=== PATIENT | female | born 1955 | race Caucasian/White ===

== ENCOUNTER 2017-02-17 22:02 | Emergency (ER) | payer MEDICARE ==
[~2017-02-17] VITALS: Ht 165.1 cm; Wt 122.7 kg
[~2017-02-17 22:02] MED LIST: 00186-0372-20 IH; ALBUTEROL SULFAT3 M3 IH; ALBUTEROL0.83 MG/ML IH; ALLEGRA180 MG PO; ALLERGY RELIEF25 M2 PO; ALLERGY RELIEF25 M3 PO; AMBIEN 10MG10 MG PO; ASPIR-LOW81 MG PO; ASPIRIN 81M81 MG/TA2 PO; ASPIRIN E.C. 8181 MG PO; ATROVENT I0.2 MG/1 M IH; CLOPIDOGREL; CRESTOR 10MG10 MG PO; DIPHENHYDRAMINE25 MG PO; ED A HIST; EPA FISH OIL1000 MG PO; EPA1000 MG PO; FLEXERIL10 MG PO; GAS RELIEF80 MG PO; GELATIN650 MG PO; GLUCOPHAGE850 MG/TAB; IPRATROPIUM BROM3 M1 IH; LASIX 20MG TABL20 MG PO; LEVAQUIN 5500 MG/TA1 PO; LEVOTHYROXINE0.1 MG PO; LEVOXYL0.112 MG; LEVOXYL0.112 MG PO; LOPRESSOR 225 MG/TAB PO; LYRICA 50MG CAP50 MG; MAGNESIUM250 MG PO; MELATONIN3 M1 PO; METOPROLOL SUCC25 MG PO; NITROQUICK0.4 MG SL; NITROSTAT0.4 MG/TAB SL; OMEGA 31000 MG PO; PERCOCET 325 MG1 TA2 PO; PERFOROMIS20 MCG/2 M IH; PHENERGAN W/CO120 ML PO; PLAVIX 75MG TAB75 MG PO; POTASSIUM99 MG PO; PREDNISONE20 MG PO; PROVENTIL0.09 MG/A1 IH; RANITIDINE150 MG PO; RESTORIL30 MG PO; RT SPIRIVA18 MCG IH; SPIRIVA18 MCG IH; SYNTHROID0.112 MG/T PO; THEO-DUR 2200 MG/TAB PO; TRAMADOL50 MG PO; VERAMYST27.5 MCG/A NS; VITAMIN D31000 IU PO; XANAX 0.5MG0.5 MG; ZANTAC 150MG T150 MG; ZANTAC 150MG T150 MG PO; ZANTAC 7575 MG PO; ZETIA 10MG TAB10 MG PO; ZOCOR 80MG80 MG PO; ZOCOR80 MG PO
[2017-02-17 22:08] VITALS: TEMP 97.9
[2017-02-17 22:40] LABS: BASO # 0.1 (0.0-0.2); BASO % 0.5 % (0.0-2.0); EOS % 0.4 % (0-4.0); GRAN # 5.4 (1.4-6.5); GRAN % 54.6 % (42.2-75.2); HEMATOCRIT 46.6 % (37.0-47.0); HEMOGLOBIN 15.6 g/dl (12.5-16.0); LYMPH # 3.6 (1.2-3.4); LYMPH % 36.5 % (20.0-51.0); MEAN CELL VOLUME 89 fl (80.0-100.0); MEAN CORPUSCULAR HEMOGLOBIN 30 pg (27.0-31.0); MEAN CORPUSCULAR HGB CONC 34 g/dl (33.0-37.0); MEAN PLATELET VOLUME 11.3 fl (7.4-10.4); MONO # 0.8 (0.1-0.6); MONO % 7.5 % (1.7-9.3); PLATELET COUNT 234 K/mm3 (130-400); RED BLOOD COUNT 5.22 M/mm3 (4.10-5.30); REDCELL DISTRIBUTION WIDTH-CV 13.6 % (11.5-14.5); WHITE BLOOD COUNT 9.9 K/mm3 (4.8-10.8)
[2017-02-17 22:43] LABS: ADJUSTED CALCIUM 8.9 mg/dL (8.4-10.2); ALANINE AMINOTRANSFERASE 34 U/L (9-52); ALBUMIN 4.3 gm/dL (3.5-5.0); ALKALINE PHOSPHATASE 151 U/L (50-136); ANION GAP 14 mmol/L (7-16); BILIRUBIN,TOTAL 0.6 mg/dL (0.0-1.0); BLOOD UREA NITROGEN 14 mg/dL (7-17); CALCIUM 9.1 mg/dL (8.4-10.2); CARBON DIOXIDE 22 mmol/L (22-30); CHLORIDE 101 mmol/L (98-107); CREATININE, serum 0.66 mg/dL (0.52-1.25); GLUCOSE 127 mg/dL (74-106); POTASSIUM 4.2 mmol/L (3.4-5.0); SODIUM 137 mmol/L (137-145)
[2017-02-17 22:54] LABS: B-TYPE NATRIURETIC PEPTIDE 62 pg/mL (0-125)
[2017-02-17 22:55] LABS: TROPONIN-I < 0.012 ng/mL (0.000-0.034)
[2017-02-18 01:48] VITALS: BP 124/65; PULSE 76
== END 2017-02-18 01:49 | disposition left against medical advice (07) ==
LOC: COL.ER 22:02
PROVIDERS: Emergency Medicine
DX: I10 Essential (primary) hypertension (principal); Z53.21 Procedure and treatment not carried out due to patient leaving prior to being seen by health care provider; I25.10 Atherosclerotic heart disease of native coronary artery without angina pectoris; Z95.5 Presence of coronary angioplasty implant and graft; E11.9 Type 2 diabetes mellitus without complications; E78.5 Hyperlipidemia, unspecified; F17.210 Nicotine dependence, cigarettes, uncomplicated; R79.89 Other specified abnormal findings of blood chemistry; Z79.84 Long term (current) use of oral hypoglycemic drugs
CPT/HCPCS: J3010; J7030

== ENCOUNTER → 2017-07-01 | Outpatient (CLI) | payer MEDICARE | LOC: COL.RAD 10:30 | DX: K76.0 Fatty (change of) liver, not elsewhere classified (principal) ==

== ENCOUNTER 2017-11-05 06:13 | Emergency (ER) | payer MEDICARE ==
[~2017-11-05] VITALS: Ht 165.1 cm; Wt 118.2 kg
[~2017-11-05 06:13] MED LIST changes: +00186-0370-20 IH; +B-121000 MCG PO; -GLUCOPHAGE850 MG/TAB; +GLUCOPHAGE850 MG/TAB PO; +MELATONIN5 M1 SL; +NEXIUM24HROTC PO; +POTASSIUM GLUC595 M1 PO; +TIROSINT150 MC1 PO; +TUDORZA IH; +VITAMIN D31000 I1 PO; +ZANTAC 150150 MG PO; +ZYRTEC 10MG10 MG PO
[2017-11-05 06:16] VITALS: TEMP 100.4
[2017-11-05 07:13] LABS: BASO % 0.3 % (0.0-2.0); GRAN # 5.3 (1.4-6.5); GRAN % 78.5 % (42.2-75.2); HEMATOCRIT 45.3 % (37.0-47.0); HEMOGLOBIN 15.1 g/dl (12.5-16.0); LYMPH # 0.8 (1.2-3.4); LYMPH % 11.3 % (20.0-51.0); MEAN CELL VOLUME 88 fl (80.0-100.0); MEAN CORPUSCULAR HEMOGLOBIN 29 pg (27.0-31.0); MEAN CORPUSCULAR HGB CONC 33 g/dl (33.0-37.0); MEAN PLATELET VOLUME 10.8 fl (7.4-10.4); MONO # 0.6 (0.1-0.6); MONO % 9.3 % (1.7-9.3); PLATELET COUNT 200 K/mm3 (130-400); RED BLOOD COUNT 5.13 M/mm3 (4.10-5.30); REDCELL DISTRIBUTION WIDTH-CV 14.4 % (11.5-14.5)
[2017-11-05 07:24] LABS: ALANINE AMINOTRANSFERASE 40 U/L (9-52); ALBUMIN 4.6 gm/dL (3.5-5.0); ALKALINE PHOSPHATASE 155 U/L (50-136); ANION GAP 12 mmol/L (7-16); AST,SGOT 33 U/L (15-37); BILIRUBIN,TOTAL 0.5 mg/dL (0.0-1.0); BLOOD UREA NITROGEN 10 mg/dL (7-17); CALCIUM 9.3 mg/dL (8.4-10.2); CARBON DIOXIDE 23 mmol/L (22-30); CHLORIDE 99 mmol/L (98-107); CREATININE, serum 0.75 mg/dL (0.52-1.25); GLUCOSE 140 mg/dL (74-106); POTASSIUM 4.2 mmol/L (3.4-5.0); SODIUM 134 mmol/L (137-145)
[2017-11-05 07:36] LABS: TROPONIN-I < 0.012 ng/mL (0.000-0.034)
[2017-11-05 07:37] LABS: ARTERIAL BLD GAS O2 SATURATION 94.2 % (92-100); ARTERIAL BLD GAS TCO2 CT 22.5; ARTERIAL BLOOD GAS BASE EXCESS -2.4 (-2-2); ARTERIAL BLOOD GAS HCO3 21.5 meq/L (22-26); ARTERIAL BLOOD GAS PCO2 34.7 mmHg (35-45); ARTERIAL BLOOD GAS PO2 69.2 mmHg (80-100); ARTERIAL BLOOD GAS pH 7.41 (7.35-7.45)
[2017-11-05] MEDS ORDERED: ZITHROMAX 250M250 MG PO (08:41)
[2017-11-05] MEDS ORDERED: TAMIFLU 75MG75 MG PO (10:12)
[2017-11-05] MEDS ORDERED: PREDNISONE20 MG PO (10:12)
[2017-11-05 11:15] VITALS: BP 131/67; PULSE 84
[2017-11-06] MEDS ORDERED: ZITHROMAX 250M250 MG PO (17:24)
== END 2017-11-05 10:00 | disposition home or self-care (01) ==
LOC: COL.ER 06:13 → MEDICAL 08:43 → COL.ER 08:43 → MEDICAL 10:00
PROVIDERS: Emergency Medicine; Family Medicine
DX: J44.1 Chronic obstructive pulmonary disease with (acute) exacerbation (principal); J10.1 Influenza due to other identified influenza virus with other respiratory manifestations; F17.210 Nicotine dependence, cigarettes, uncomplicated; Z99.81 Dependence on supplemental oxygen
CPT/HCPCS: J2930; J7030

== ENCOUNTER 2017-11-05 12:26 | Inpatient (IN) | payer MEDICARE ==
[~2017-11-05] VITALS: Ht 167.6 cm; Wt 94.6 kg
[~2017-11-05 12:26] MED LIST changes: +TAMIFLU 75MG75 MG PO; +ZITHROMAX 250M250 MG PO
[2017-11-05 13:34] LABS: ARTERIAL BLD GAS O2 SATURATION 93.1 % (92-100); ARTERIAL BLD GAS TCO2 CT 22.1; ARTERIAL BLOOD GAS BASE EXCESS -3.8 (-2-2); ARTERIAL BLOOD GAS PCO2 37.6 mmHg (35-45); ARTERIAL BLOOD GAS PO2 67.5 mmHg (80-100); ARTERIAL BLOOD GAS pH 7.36 (7.35-7.45)
[2017-11-05 14:16] VITALS: BP 121/39; PULSE 80; TEMP 98.2
[2017-11-05 14:17] VITALS: BP 121/39; PULSE 80; TEMP 98.2
[2017-11-05 15:12] VITALS: BP 121/39; PULSE 80; TEMP 98.2
[2017-11-05 20:14] VITALS: BP 106/66; PULSE 88; TEMP 98.1
[2017-11-05 21:33] LABS: MUCOUS Present /lpf; PH 5 (5-8); SQUAMOUS EPITHELIAL 0-2 /hpf; URINE APPEARANCE Clear; URINE BACTERIA None Seen /hpf; URINE BILIRUBIN Negative (NEGATIVE); URINE BLOOD Negative (NEGATIVE); URINE COLOR Straw; URINE GLUCOSE 3+ (NEGATIVE); URINE KETONE Negative (NEGATIVE); URINE LEUKOCYTE ESTERASE Negative (NEGATIVE); URINE NITRATE Negative (NEGATIVE); URINE PROTEIN(semi-quant) Negative (NEGATIVE); URINE RBC 0-2 /hpf; URINE UROBILINOGEN Negative (NEGATIVE)
[2017-11-05 21:36] LABS: COLLECTION METHOD CLEAN CATCH
[2017-11-05 23:58] VITALS: BP 115/53; PULSE 74; TEMP 97.6
[2017-11-06 04:12] VITALS: BP 119/50; PULSE 72; TEMP 97.6
[2017-11-06 07:11] LABS: BASO % 0.1 % (0.0-2.0); EOS % 0.1 % (0-4.0); GRAN # 6.3 (1.4-6.5); GRAN % 82.6 % (42.2-75.2); HEMOGLOBIN 14.4 g/dl (12.5-16.0); LYMPH # 0.8 (1.2-3.4); LYMPH % 10.4 % (20.0-51.0); MEAN CELL VOLUME 88 fl (80.0-100.0); MEAN CORPUSCULAR HEMOGLOBIN 29 pg (27.0-31.0); MEAN CORPUSCULAR HGB CONC 33 g/dl (33.0-37.0); MEAN PLATELET VOLUME 10.9 fl (7.4-10.4); MONO # 0.5 (0.1-0.6); MONO % 6.1 % (1.7-9.3); PLATELET COUNT 150 K/mm3 (130-400); REDCELL DISTRIBUTION WIDTH-CV 14.6 % (11.5-14.5)
[2017-11-06 07:21] LABS: CALCIUM 9.5 mg/dL (8.4-10.2); CREATININE, serum 0.65 mg/dL (0.52-1.25); MAGNESIUM 1.7 mg/dL (1.6-2.3); POTASSIUM 4.5 mmol/L (3.4-5.0)
[2017-11-06 08:30] VITALS: BP 118/44; PULSE 78; TEMP 97.8
[2017-11-06 12:09] VITALS: BP 127/52; PULSE 71; TEMP 98.2
[2017-11-06 15:27] VITALS: BP 116/62; PULSE 81; TEMP 98.1
[2017-11-06] MEDS ORDERED: ZITHROMAX 250M250 MG PO (17:24)
== END 2017-11-06 19:22 | disposition home or self-care (01) | DRG 872 ==
LOC: COL.ER 12:26 → MEDICAL 12:43 → COL.ER 12:43 → MEDICAL 11-06 19:22
PROVIDERS: Family Medicine; Internal Medicine; Physician Assistant
DX: A41.9 Sepsis, unspecified organism (principal); J44.1 Chronic obstructive pulmonary disease with (acute) exacerbation; E87.1 Hypo-osmolality and hyponatremia; R65.20 Severe sepsis without septic shock; J10.1 Influenza due to other identified influenza virus with other respiratory manifestations; I25.10 Atherosclerotic heart disease of native coronary artery without angina pectoris; E11.9 Type 2 diabetes mellitus without complications; F17.210 Nicotine dependence, cigarettes, uncomplicated; Z95.5 Presence of coronary angioplasty implant and graft
CPT/HCPCS: 99222-AI; 99232-AI; 99239; J0696; J1650; J1815; J2920; J2930; J7030

== ENCOUNTER 2018-11-15 07:05 | Emergency (ER) | payer MEDICARE ==
[~2018-11-15] VITALS: Ht 165.1 cm; Wt 118.2 kg
[2018-11-15 07:13] VITALS: TEMP 98.4
[2018-11-15 07:19] LABS: COLLECTION METHOD CLEAN CATCH
[2018-11-15 07:51] LABS: MUCOUS Present /lpf; PH 5 (5-8); SQUAMOUS EPITHELIAL 0-2 /hpf; URINE APPEARANCE Cloudy; URINE BACTERIA None Seen /hpf; URINE BILIRUBIN Negative (NEGATIVE); URINE BLOOD 3+ (NEGATIVE); URINE COLOR Amber; URINE GLUCOSE Negative (NEGATIVE); URINE KETONE Negative (NEGATIVE); URINE LEUKOCYTE ESTERASE Negative (NEGATIVE); URINE NITRATE Negative (NEGATIVE); URINE PROTEIN(semi-quant) 1+ (NEGATIVE); URINE RBC >50 /hpf
[2018-11-15 08:02] LABS: BASO % 0.3 % (0.0-2.0); EOS % 0.1 % (0-4.0); GRAN # 7.5 (1.4-6.5); GRAN % 79.7 % (42.2-75.2); HEMATOCRIT 44.1 % (37.0-47.0); HEMOGLOBIN 14.7 g/dl (12.5-16.0); LYMPH # 1.3 (1.2-3.4); LYMPH % 14.1 % (20.0-51.0); MEAN CELL VOLUME 90 fl (80.0-100.0); MEAN CORPUSCULAR HEMOGLOBIN 30 pg (27.0-31.0); MEAN CORPUSCULAR HGB CONC 33 g/dl (33.0-37.0); MEAN PLATELET VOLUME 11.8 fl (7.4-10.4); MONO # 0.5 (0.1-0.6); MONO % 5.3 % (1.7-9.3); PLATELET COUNT 231 K/mm3 (130-400); RED BLOOD COUNT 4.88 M/mm3 (4.10-5.30); REDCELL DISTRIBUTION WIDTH-CV 14.3 % (11.5-14.5)
[2018-11-15 08:31] LABS: ALBUMIN 4.1 gm/dL (3.5-5.0); BILIRUBIN,TOTAL 0.4 mg/dL (0.0-1.0); C-REACTIVE PROTEIN 2.3 mg/dL (0.0-0.9); CALCIUM 9.2 mg/dL (8.4-10.2); CREATININE, serum 0.67 mg/dL (0.52-1.25); TOTAL PROTEIN 7.6 gm/dL (6.4-8.2)
[2018-11-15] MEDS ORDERED: PERCOCET 325 MG1 TA2 PO (08:59)
[2018-11-15 09:57] VITALS: BP 126/64; PULSE 72
== END 2018-11-15 09:56 | disposition home or self-care (01) ==
LOC: COL.ER 07:05
PROVIDERS: Family Medicine
DX: N20.1 Calculus of ureter (principal); J44.9 Chronic obstructive pulmonary disease, unspecified; I25.10 Atherosclerotic heart disease of native coronary artery without angina pectoris; E11.9 Type 2 diabetes mellitus without complications; F17.210 Nicotine dependence, cigarettes, uncomplicated; Z90.710 Acquired absence of both cervix and uterus; Z90.49 Acquired absence of other specified parts of digestive tract; Z90.89 Acquired absence of other organs; Z95.5 Presence of coronary angioplasty implant and graft; Z79.82 Long term (current) use of aspirin; Z79.84 Long term (current) use of oral hypoglycemic drugs
CPT/HCPCS: J1170; J2405; J7030

== ENCOUNTER 2019-09-19 17:42 | Inpatient (IN) | payer MEDICARE ==
[2019-09-19] VITALS (182 sets, daily range): BP systolic 121; BP diastolic 83; PULSE 95; TEMP 98.1; O2SAT 89–97
[~2019-09-19] VITALS: Ht 167.6 cm; Wt 121.5 kg
[2019-09-19 18:21] LABS: BASO % 0.3 % (0.0-2.0); EOS % 0.1 % (0-4.0); GRAN # 7.4 (1.4-6.5); GRAN % 76.8 % (42.2-75.2); HEMATOCRIT 46.4 % (37.0-47.0); HEMOGLOBIN 15.3 g/dl (12.5-16.0); LYMPH # 1.3 (1.2-3.4); LYMPH % 13.9 % (20.0-51.0); MEAN CELL VOLUME 89 fl (80.0-100.0); MEAN CORPUSCULAR HEMOGLOBIN 29 pg (27.0-31.0); MEAN CORPUSCULAR HGB CONC 33 g/dl (33.0-37.0); MEAN PLATELET VOLUME 10.9 fl (7.4-10.4); MONO # 0.8 (0.1-0.6); MONO % 8.4 % (1.7-9.3); PLATELET COUNT 214 K/mm3 (130-400); REDCELL DISTRIBUTION WIDTH-CV 15.7 % (11.5-14.5)
[2019-09-19 18:44] LABS: ALBUMIN 4.8 gm/dL (3.5-5.0); BILIRUBIN,TOTAL 0.6 mg/dL (0.0-1.0); CALCIUM 9.7 mg/dL (8.4-10.2); CREATININE, serum 0.59 (0.52-1.25); POTASSIUM 4.4 mmol/L (3.4-5.0); TOTAL PROTEIN 9.1 gm/dL (6.4-8.2)
--- NOTE | 2019-09-19 20:15 | NUR ---
Report called over by THERESA Zaragoza in the ED. Patient is currently getting a breathing treatment and will be brought to unit when finished.
--- NOTE | 2019-09-19 20:50 | NUR ---
Patient arrives at this time via wheelchair. , Curtis, at the bedside. All belongings, to include purse and oxygen tank have been placed in the room closet. Patient is pleasant, alert, and oriented x4. Complaints of some diaphragmatic pain in her abdomen from coughing, a dull ache. Assessment complete. Lungs are diminished in all ty and clear. She is tachypneic in the high 20's to low 30's depending on movement. HR and rhythm are regular with normal S1 and S2 heard. Bowel sounds active x4. All peripheral pulses are palpable. SHe has some +2-3 pitting edema to the lower extremities. No noted skin issues. Oriented patient to room and unit. Explained and demonstrated call light. Patient requests to sit at the side of the bed leaning over the side table. Assisted with positioning. Provided water and ice chips per her request. Patient has no further needs at this time. LINDA Conroy notified of patient's arrival to unit. Will await orders.
[2019-09-19] MEDS ORDERED: PEPCID40 MG PO (21:12)
[2019-09-19] MEDS ORDERED: ZITHROMAX 250M250 MG PO (21:12)
[2019-09-19] MEDS ORDERED: LIPITOR20 MG PO (21:13)
[2019-09-19] MEDS ORDERED: SYNTHROID 0.10.15 MG PO (23:06)
[2019-09-19] MEDS ORDERED: B-121000 MCG PO (23:09)
[2019-09-19] MEDS ORDERED: VITAMIN B6250 MG PO (23:09)
[2019-09-20] VITALS (1306 sets, daily range): BP systolic 110–135; BP diastolic 55–72; PULSE 77–96; TEMP 97.5–98.2; O2SAT 81–100
--- NOTE | 2019-09-20 | NUR ---
Patient up to the recliner as she is unable to tolerate laying in the bed. Vitals obtained and remain stable. Patient has been up to the commode several times now and does well as standby assist. Patient is still requiring 6L NC. Will try BiPAP at this time. No further needs. Will continue to monitor. Call light within reach.
[2019-09-20 02:47] LABS: COLLECTION METHOD CLEAN CATCH
[2019-09-20 02:53] LABS: MUCOUS Present /lpf; PH 5 (5-8); SQUAMOUS EPITHELIAL 0-2 /hpf; URINE APPEARANCE Clear; URINE BACTERIA Rare /hpf; URINE BILIRUBIN Negative (NEGATIVE); URINE BLOOD Negative (NEGATIVE); URINE COLOR Straw; URINE GLUCOSE Negative (NEGATIVE); URINE KETONE Negative (NEGATIVE); URINE LEUKOCYTE ESTERASE Negative (NEGATIVE); URINE NITRATE Negative (NEGATIVE); URINE PROTEIN(semi-quant) Negative (NEGATIVE); URINE RBC 0-2 /hpf; URINE UROBILINOGEN Negative (NEGATIVE)
--- NOTE | 2019-09-20 04:00 | NUR ---
Patient up in the recliner resting. Patient only wore the BiPAP for about an hour. She is awake with no change in pain as this is a chronic issue for her, but she does not want pain meds. Vitals obtained and remain stable. Patient has no further needs at this time. Will continue to monitor. Call light within reach.
--- NOTE | 2019-09-20 05:00 | NUR ---
Patient requesting breathing treatment at this time. Candy, RT notified.
[2019-09-20 06:09] LABS: BASO % 0.2 % (0.0-2.0); GRAN # 5.1 (1.4-6.5); GRAN % 85.4 % (42.2-75.2); HEMATOCRIT 44.1 % (37.0-47.0); HEMOGLOBIN 14.3 g/dl (12.5-16.0); LYMPH # 0.8 (1.2-3.4); LYMPH % 12.7 % (20.0-51.0); MEAN CELL VOLUME 89 fl (80.0-100.0); MEAN CORPUSCULAR HEMOGLOBIN 29 pg (27.0-31.0); MEAN CORPUSCULAR HGB CONC 32 g/dl (33.0-37.0); MEAN PLATELET VOLUME 10.8 fl (7.4-10.4); MONO # 0.1 (0.1-0.6); MONO % 1.2 % (1.7-9.3); PLATELET COUNT 201 K/mm3 (130-400); RED BLOOD COUNT 4.95 M/mm3 (4.10-5.30); REDCELL DISTRIBUTION WIDTH-CV 15.6 % (11.5-14.5)
[2019-09-20 06:31] LABS: ALBUMIN 4.3 gm/dL (3.5-5.0); BILIRUBIN,TOTAL 0.3 mg/dL (0.0-1.0); CALCIUM 8.8 mg/dL (8.4-10.2); CREATININE, serum 0.58 (0.52-1.25); POTASSIUM 4.2 mmol/L (3.4-5.0); TOTAL PROTEIN 7.9 gm/dL (6.4-8.2)
--- NOTE | 2019-09-20 07:30 | NUR ---
PT AMBULATED/PIVOTED TO BEDSIDE COMMODE. PT HAVING MODERATE AMT OF DYSPNEA WITH EXERTION WITH TACHYPNEA. PT STATES SHE FEELS VERY ANXIOUS. PT GIVEN ATIVAN PRN FOR ANXIETY.
--- NOTE | 2019-09-20 07:35 | NUR ---
Bedside report given to THERESA Vallecillo
--- NOTE | 2019-09-20 09:00 | NUR ---
PT MORE RELAXED AND ABLE TO SIT BACK IN RECLINER CHAIR. PT REQUESTED TO PUT BIPAP MASK ON WHILE NAPPING D/T SOB.
--- NOTE | 2019-09-20 10:20 | NUR ---
PT HAVING INCREASED WORK OF BREATHING CECILE WITH EXERTION. I ENCOURAGED FOR PATIENT TO WEAR BIPAP AFTER SHE WAS DONE ON THE BEDSIDE COMMODE BUT PATIENT REFUSED. PT PLACED ON 6L NC BEFORE. PT'S O2 SAT 96% ON 6L. RESPIRATORY RATE 40.
--- NOTE | 2019-09-20 10:47 | NUR ---
PT NOW MORE RELAXED. RESPIRATIONS 20-24BPM, O2 SAT 91% ON 6L NC
--- NOTE | 2019-09-20 11:00 | NUR ---
PT'S REFUSES TO WEAR PPE. I EXPLAINED TO HIM THE RISK OF SPREADING RSV VIRUS AND HE STATES "I'M NOT WORRIED ABOUT CATCHING ANYTHING" I EXPLAINED THAT WEARING PPE IS NOT ONLY INDICATED FOR HIS HEALTH AND SAFETY BUT ALSO FOR SAFETY OF SPREADING IT TO OTHERS IE IMMUNOCOMPROMISED AND CHILDREN. AGREED TO PERFORM GOOD HYGIENE UPON LEAVING THE ROOM TO DECREASE EXPOSURE AND SPREAD OF RSV.
--- NOTE | 2019-09-20 11:11 | NUR ---
PT'S ARRIVED. DISCUSSED WITH HIM PATIENT'S PLAN OF CARE AND STATUS. EXPLAINED IMPORTANCE OF PATIENT WEARING BIPAP MASK AND PATIENT REFUSAL TO WEAR. TALKED WITH PATIENT ABOUT WEARING MASK AND PATIENT AGREED TO PUT BIPAP BACK ON.
--- NOTE | 2019-09-20 11:30 | NUR ---
HAMPER MAKER ATTEMPTED TO PERFORM ECHO. PT BECAME VERY ANXIOUS AND RIPPED BIPAP MASK OFF AND STOOD UP. PATIENT'S BREATHING VERY LABORED AND TACHYPNEIC. PATIENT STATED SHE HAD TO PEE. PATIENT'S FACE BEGAN TURNING CYANOTIC D/T PATIENT NOT HAVING HER O2 ON. PUT PATIENT'S NC ON AT 6L AND HELPED PATIENT TO BEDSIDE COMMODE. ONCE PATIENT DONE ON COMMODE I EXPLAINED TO HER THAT SHE IS BECOMING SO SHORT OF BREATH AND STRUGGLING THAT IF SHE DIDN'T WEAR THE BIPAP SHE MAY END UP ON A VENTILATOR. PATIENT STATES SHE IS A DNI AND DOES NOT WANT INTUBATED. PATIENT GIVEN ATIVAN IV FOR ANXIETY. PATIENT AGREED TO PUT BIPAP MASK BACK ON.
--- NOTE | 2019-09-20 13:00 | NUR ---
PATIENT EXPRESSED TO DR ESPINO THAT SHE DOES NOT WANT TO BE INTUBATED AND DOES NOT WANT CPR. PATIENT DOCUMENTED TO BE DNR/DNI.
[2019-09-20 13:38] LABS: ARTERIAL BLD GAS O2 SATURATION 95.4 % (92-100); ARTERIAL BLOOD GAS BASE EXCESS -2.6 (-2-2); ARTERIAL BLOOD GAS HCO3 25.3 meq/L (22-26); ARTERIAL BLOOD GAS PCO2 55.8 mmHg (35-45); ARTERIAL BLOOD GAS PO2 80.1 mmHg (80-100); ARTERIAL BLOOD GAS pH 7.27 (7.35-7.45)
--- NOTE | 2019-09-20 14:30 | NUR ---
AFTER SEEING PATIENT'S ABG DR ESPINO INCREASED IPAP TO 18 FROM 14, EPAP REMAINS AT 6, BACKUP RATE 20
--- NOTE | 2019-09-20 15:36 | NUR ---
PT TAKEN OFF BIPAP FOR 15 MINS D/T PATIENT WANTING TO EAT. I STRONGLY ENCOURAGED PATIENT TO KEEP MASK ON BUT PATIENT REFUSED AND WANTED TO EAT. PATIENT ABLE TO EAT SMALL AMT OF MEAL. PATIENT LASTED 15 MINS OFF BIPAP AND THEN BEGAN GETTING WORE OUT D/T INCREASED WORK OF BREATHING.
--- NOTE | 2019-09-20 16:22 | NUR ---
BIANKA met with the patient to discuss a discharge plan. The patient lives in [place] with her , Curtis. The patient receives oxygen from [employer] and has a CPAP, walker and a shower chair. The patient reports independence with ADLs and reports she has never had home health services. The patient's PCP is Dr. Reyes and patient receives medications from [facility] in [place]. The patient does not have advanced directives in the EMR but reports they are completed and designate, Bill. family services assistant will continue to follow to ensure a safe discharge.
[2019-09-20 17:27] LABS: ARTERIAL BLD GAS O2 SATURATION 95.4 % (92-100); ARTERIAL BLD GAS TCO2 CT 26.1; ARTERIAL BLOOD GAS BASE EXCESS -2.5 (-2-2); ARTERIAL BLOOD GAS HCO3 24.5 meq/L (22-26); ARTERIAL BLOOD GAS PCO2 50.6 mmHg (35-45); ARTERIAL BLOOD GAS PO2 80.1 mmHg (80-100)
--- NOTE | 2019-09-20 18:27 | NUR ---
PT'S SON ARRIVED. STEPPED OUT TO TAKE BREAK. SON WITH PATIENT AT THIS TIME.
--- NOTE | 2019-09-20 18:52 | NUR ---
EXPLAINED TO SON PATIENT'S STATUS AND SITUATION. SON VERBALIZES UNDERSTANDING.
--- NOTE | 2019-09-20 19:15 | NUR ---
Bedside report received from THERESA Vallecillo
--- NOTE | 2019-09-20 20:00 | NUR ---
Patient sitting in recliner and laying over bedside table. Patient's and son are at the bedside. Vitals obtained and are WNL. Patient is currently showing no signs of distress or pain. Patient denies pain when asked. Assessment complete. Lungs are clear in the upper lobes with expiratory wheezes in the bases as well as being diminished in all ty. HR and rhythm are regular with normal S1 and S2 heard. Bowel sounds active x4. Peripheral pulses are palpable. BLE continue to be +2 pitting edema. Patient takes oral medications off of the bipap, but she does not tolerate this for very long and quickly desaturates into the low 80's. BiPAP replaced. Patient has no further needs at this time. Will continue to monitor. Call light within reach.
--- NOTE | 2019-09-21 | NUR ---
Patient requests to get up to the restroom at this time. Patient was unable to get out of the recliner without assistance and she was very unsteady on her feet. Got patient to bedside commode where she became too short of breath to focus on going to the restroom. Returned to chair with help of another nurse. Vitals obtained and remain stable. Patient is now resting again and has no further needs at this time. Will continue to monitor. Call light within reach.
--- NOTE | 2019-09-21 00:20 | NUR ---
Patient requests to use the restroom again. Patient does allow for BiPAP to remain on this time instead of switching to NC. Patient does produce a tiny amount of liquid stool. It takes 2 nurses and a gait belt to get patient back into chair. Patient just wants to relax now. No further needs. Will continue to monitor. Call light within reach.
[2019-09-21 04:00] VITALS: BP 131/75; PULSE 93; TEMP 97.2
--- NOTE | 2019-09-21 04:00 | NUR ---
Vitals obtained. Patient is leaned back in the recliner sleeping. No signs of distress or pain. Vitals remain WNL. Will continue to monitor. Call light within reach.
--- NOTE | 2019-09-21 06:35 | NUR ---
Patient requests to be taken off her BiPAP for a few minutes. Patient was taken off for a total of 3 minutes when she was having heaving breaths and a RR in the 40's. Patient requested to be placed back on BiPAP. Patient now back on BiPAP and looks much calmer. Nothing further at this time. Will continue to monitor.
--- NOTE | 2019-09-21 07:21 | NUR ---
Bedside report given to THERESA Vallecillo.
[2019-09-21 08:00] VITALS: BP 103/58; PULSE 83; TEMP 98.1
--- NOTE | 2019-09-21 08:00 | NUR ---
PT SITTING UP IN CHAIR, FAMILY AT BEDSIDE. PT LETHARGIC BUT AROUSES EASILY. PT UNABLE TO TOLERATE BEING OFF BIPAP EVEN FOR VERY BRIEF PERIODS OF TIME D/T DYSPNEA. PT C/O HEADACHE. TYLENOL PROVIDED.
[2019-09-21 08:28] LABS: ARTERIAL BLD GAS O2 SATURATION 98.7 % (92-100); ARTERIAL BLD GAS TCO2 CT 26.7; ARTERIAL BLOOD GAS BASE EXCESS -2.6 (-2-2); ARTERIAL BLOOD GAS PCO2 54.6 mmHg (35-45); ARTERIAL BLOOD GAS pH 7.28 (7.35-7.45)
[2019-09-21 08:29] LABS: ARTERIAL BLOOD GAS PO2 143.8 mmHg (80-100)
[2019-09-21 08:59] LABS: HEMATOCRIT 45.8 % (37.0-47.0); HEMOGLOBIN 14.7 g/dl (12.5-16.0); MEAN CELL VOLUME 91 fl (80.0-100.0); MEAN CORPUSCULAR HEMOGLOBIN 29 pg (27.0-31.0); MEAN CORPUSCULAR HGB CONC 32 g/dl (33.0-37.0); MEAN PLATELET VOLUME 10.6 fl (7.4-10.4); PLATELET COUNT 219 K/mm3 (130-400); RED BLOOD COUNT 5.01 M/mm3 (4.10-5.30); REDCELL DISTRIBUTION WIDTH-CV 15.8 % (11.5-14.5)
[2019-09-21 09:19] LABS: BAND 17 % (0-10); LYMPHOCYTE 5 % (20.0-51.0); NEUTROPHILS 77 % (42.0-75.2); PLATELET ESTIMATE NORMAL (NORMAL)
[2019-09-21 09:43] LABS: ALBUMIN 4.4 gm/dL (3.5-5.0); BILIRUBIN,TOTAL 0.4 mg/dL (0.0-1.0); CREATININE, serum 0.74 (0.52-1.25); POTASSIUM 4.5 mmol/L (3.4-5.0); TOTAL PROTEIN 8.1 gm/dL (6.4-8.2)
--- NOTE | 2019-09-21 11:16 | NUR ---
Air Tool Operator attended clinical rounds with the team. SW to continue to follow to ensure safe discharge.
[2019-09-21 12:00] VITALS: BP 102/46; PULSE 86; TEMP 98
--- NOTE | 2019-09-21 12:00 | NUR ---
DR ESPINO CHANGED BIPAP SETTINGS TO 22/6, FIO2 DECREASED TO 40%. PROVIDER WOULD LIKE PATIENT'S SATS TO MAINTAIN BETWEEN 88-92%. RT NOTIFIED OF BIPAP SETTING CHANGES.
--- NOTE | 2019-09-21 13:33 | NUR ---
PT ABLE TO STAY OFF BIPAP FOR 2.5 HOURS. PT STARTING GET TO BECOME FATIGUED AND INCREASED WORK OF BREATHING. PT ASKED TO PUT BIPAP MASK BACK ON.
--- NOTE | 2019-09-21 14:45 | NUR ---
PT'S SON FROM [place] HAS ARRIVED. PT PLACED BACK ON NC AT 6L.
--- NOTE | 2019-09-21 15:10 | NUR ---
PT ASKED TO PUT BIPAP MASK BACK ON D/T SOB
--- NOTE | 2019-09-21 15:58 | NUR ---
PT ASKED TO BE PUT BACK ON NC. O2 SAT 97% ON 6L. O2 DECREASED TO 4LNC.
[2019-09-21 16:00] VITALS: BP 123/66; PULSE 66; TEMP 98.1
--- NOTE | 2019-09-21 18:13 | NUR ---
PT REQUESTED TO HAVE BIPAP MASK OFF TO ATTEMPT TO EAT DINNER.
--- NOTE | 2019-09-21 18:21 | NUR ---
PT PLACED BACK ON BIPAP. PT UNABLE TO TOLERATE BEING OFF BIPAP.
--- NOTE | 2019-09-21 19:15 | NUR ---
Bedside report received from THERESA Vallecillo
[2019-09-21 20:00] VITALS: BP 119/53; PULSE 67; TEMP 98.2
--- NOTE | 2019-09-21 20:00 | NUR ---
Patient awake and talking to family. and two sons at the bedside. Patient is alert and oriented x4. Patient was placed on oxymask by RT Krissy. Patient has no complaints of pain, but she is complaining of anxiety and would like some medication. Provided. Assessment complete. lungs are diminished in all ty as well as having expiratory wheezes. Patient is tachypneic, but is improved since this morning. HR and rhythm are regular with normal S1 and S2. Bowel sounds active x4. Peripheral pulses are palpable in all extremities. Patient continues to have +2-3 pitting edema to the lower extremities. Patient has no further needs at this time. Will continue to monitor. Call light within reach.
--- NOTE | 2019-09-21 22:00 | NUR ---
Patient calls at this time and requests to try and lay in the bed. With the assistance of THERESA aPge and gait belt patient was able to walk from the recliner to the bed. Patient is now laying comfortable in bed with BiPAP on. No further needs at this time. Will continue to monitor. Call light within reach.
[2019-09-22] VITALS: BP 128/63; PULSE 98; TEMP 98.5
--- NOTE | 2019-09-22 | NUR ---
Patient resting comfortably on BiPAP in bed. She is sleeping at this time. Vitals obtained and remain stable. No complaints of pain. Patient has no further needs at this time. Will continue to monitor. Call light within reach.
--- NOTE | 2019-09-22 02:10 | NUR ---
Patient awake at this time sitting up at the side of the bed with oxymask on. Patient stayed up for about 20mins. WHen going to lay back down patient started having a panic attack. Stayed with patient and helped talk her through it and have her focus on her breathing. After about 10mins patient is now feeling better and is willing to put the BiPAP back on and lay down again. Stayed with patient for several more minutes to ensure no issues. Nothing further at this time. WIll continue to monitor.
[2019-09-22 04:00] VITALS: BP 118/73; PULSE 63; TEMP 98.5
--- NOTE | 2019-09-22 04:00 | NUR ---
Patient asleep in bed on BiPAP. Vitals obtained and remain stable. WIll continue to monitor
[2019-09-22 05:30] LABS: BASO % 0.1 % (0.0-2.0); GRAN # 8.9 (1.4-6.5); HEMOGLOBIN 14.3 g/dl (12.5-16.0); LYMPH % 9.9 % (20.0-51.0); MEAN CELL VOLUME 92 fl (80.0-100.0); MEAN CORPUSCULAR HEMOGLOBIN 30 pg (27.0-31.0); MEAN CORPUSCULAR HGB CONC 33 g/dl (33.0-37.0); MEAN PLATELET VOLUME 11.1 fl (7.4-10.4); MONO # 0.3 (0.1-0.6); MONO % 3.1 % (1.7-9.3); PLATELET COUNT 212 K/mm3 (130-400); RED BLOOD COUNT 4.81 M/mm3 (4.10-5.30); REDCELL DISTRIBUTION WIDTH-CV 15.8 % (11.5-14.5)
[2019-09-22 05:39] LABS: CREATININE, serum 0.72 (0.52-1.25); POTASSIUM 4.5 mmol/L (3.4-5.0)
--- NOTE | 2019-09-22 07:27 | NUR ---
Bedside report given to THERESA Sullivan
--- NOTE | 2019-09-22 07:30 | NUR ---
Bedside shift report recieved from THERESA Camarena. Patient is sitting on the side of the bed, legs dangling. Bed in lowest position, side rails up x3. at bedside. Full assessment completed. Patient is on oxymask at 6L with no complaints or concerns at this time. Vital signs stable. Call light within reach.
[2019-09-22 07:40] VITALS: BP 137/75; PULSE 76; TEMP 97.8
--- NOTE | 2019-09-22 10:00 | NUR ---
Patient called out to stand up and stretch her legs. Patient assisted to stand by 1 RN with no complications. After a few minutes, patient attempts to walk a couple steps, but becomes short of breath and dizzy so she sits down on the bed. Patient educated to sit down and catch her breath for a bit and we can try again later this afternoon.
[2019-09-22 10:32] LABS: MAGNESIUM 1.9 mg/dL (1.6-2.3); PHOSPHOROUS 3.6 mg/dL (2.5-4.5)
--- NOTE | 2019-09-22 10:39 | NUR ---
Vancomycin Initial Dosing Pharmacy Note Ordering provider: Ivis Harry MD Indication/duration: CAP Relevant comorbidities: COPD LABS: SCr 0.72, CrCl~91, GFR 82 Recommendation: Will give Vancomycin 2 gm IV x1 loading dose, then Vancomycin 1.5 gm IV q12h. Pharmacy will continue to monitor and check a Vancomycin trough on 09/24/19. Loading dose: 2 grams Maintenance dose: 1.5 grams every 12 hours Trough goal: 15-20 ug/mL
--- NOTE | 2019-09-22 11:15 | NUR ---
RT at bedside to place the patient on Airvo at this time. Patient tolerating well with no complaints or concerns at this time.
[2019-09-22 12:00] VITALS: BP 133/73; PULSE 72; TEMP 98.7
--- NOTE | 2019-09-22 13:55 | NUR ---
Patient states she is having anxiety 8/10 at this time.
[2019-09-22 14:05] LABS: ARTERIAL BLD GAS O2 SATURATION 91.3 % (92-100); ARTERIAL BLD GAS TCO2 CT 32.8; ARTERIAL BLOOD GAS HCO3 31.2 meq/L (22-26); ARTERIAL BLOOD GAS PCO2 51.4 mmHg (35-45); ARTERIAL BLOOD GAS PO2 56.3 mmHg (80-100)
--- NOTE | 2019-09-22 14:26 | NUR ---
Patient placed back on the BiPAP at this time to take a nap. Patient repositioned in bed on her left side with head of bed elevated. BiPAP secured and functioning appropriately. O2 Sats stable 89-90%. Respiratory therapy at bedside to assess BiPAP and adjust settings. Patient has no complaints or concerns at this time. Bed in lowest position. Side rails up x3. Call light placed within reach.
[2019-09-22 16:00] VITALS: BP 131/68; PULSE 73; TEMP 98
--- NOTE | 2019-09-22 19:20 | NUR ---
Bedside shift report given to THERESA Warren at this time. Patient assisted back to bed from bedside commode with no complications. Patient placed back on BiPAP at this time and sitting on the side of the bed. INT discontinued at this time due to drainage and leaking.
[2019-09-22 20:00] VITALS: BP 141/73; PULSE 73; TEMP 98
--- NOTE | 2019-09-22 21:30 | NUR ---
Patient called to request a drink of water; became agitated with this nurse because she had to wait for nurse to come to assist her. Stated she could not stay here anymore and was going to go home tonight. This nurse told patient that it is her right to leave, however it would be against medical advice as her respiratory status was still precarious. Told this nurse she was feeling very anxious and would like to see her , who is in the waiting room. This nurse told patient that I would get her for a short visit and would administer PRN anxiety medication. Patient agreed to this.
--- NOTE | 2019-09-22 22:30 | NUR ---
Patient resting in bed quietly; at bedside to provide comfort until able to fall asleep. Tolerating BIPAP well at this time.
[2019-09-23] VITALS: BP 120/52; PULSE 60; TEMP 97.4
--- NOTE | 2019-09-23 03:45 | NUR ---
Attempted to re-place BIPAP at this time. Patient refused and stated she would like to be "up for the day". Gretel on 6L oxymask. RT notifed and requested to place on Air-Vo.
[2019-09-23 04:00] VITALS: BP 158/79; PULSE 64; TEMP 97.6
[2019-09-23 05:26] LABS: BASO % 0.2 % (0.0-2.0); EOS % 0.1 % (0-4.0); GRAN # 8.8 (1.4-6.5); GRAN % 81.3 % (42.2-75.2); HEMATOCRIT 47.2 % (37.0-47.0); HEMOGLOBIN 15.5 g/dl (12.5-16.0); LYMPH # 1.5 (1.2-3.4); LYMPH % 13.7 % (20.0-51.0); MEAN CELL VOLUME 91 fl (80.0-100.0); MEAN CORPUSCULAR HEMOGLOBIN 30 pg (27.0-31.0); MEAN CORPUSCULAR HGB CONC 33 g/dl (33.0-37.0); MEAN PLATELET VOLUME 11.3 fl (7.4-10.4); MONO # 0.4 (0.1-0.6); MONO % 4.1 % (1.7-9.3); PLATELET COUNT 210 K/mm3 (130-400); RED BLOOD COUNT 5.21 M/mm3 (4.10-5.30); REDCELL DISTRIBUTION WIDTH-CV 15.7 % (11.5-14.5)
[2019-09-23 05:34] LABS: CALCIUM 9.2 mg/dL (8.4-10.2); CREATININE, serum 0.7 (0.52-1.25); POTASSIUM 4.3 mmol/L (3.4-5.0)
--- NOTE | 2019-09-23 07:35 | NUR ---
Bedside report given to THERESA Francis. Patient care transfered.
[2019-09-23 08:00] VITALS: BP 157/85; PULSE 76; TEMP 97.9
--- NOTE | 2019-09-23 08:00 | NUR ---
Shift assessment complete at this time. Plan of care reviewed at bedside with patient et family. Additional time taken to address any other needs or concerns. Vitals stable at this time. Pt denies pain or any other discomforts. Bed in low position, call light within reach, will continue to monitor.
[2019-09-23 10:13] LABS: ARTERIAL BLD GAS O2 SATURATION 92.1 % (92-100); ARTERIAL BLD GAS TCO2 CT 28.6; ARTERIAL BLOOD GAS BASE EXCESS 3.2 (-2-2); ARTERIAL BLOOD GAS HCO3 27.4 meq/L (22-26); ARTERIAL BLOOD GAS PCO2 40.1 mmHg (35-45); ARTERIAL BLOOD GAS pH 7.45 (7.35-7.45)
[2019-09-23 12:00] VITALS: BP 131/71; PULSE 68; TEMP 98
--- NOTE | 2019-09-23 12:00 | NUR ---
Pt resting comfortably at side of bed. Pt denies pain or any other discomforts at this time. Vitals stable. Bed in low position, call light within reach, will continue to monitor.
[2019-09-23 16:00] VITALS: BP 136/74; PULSE 75; TEMP 98.2
--- NOTE | 2019-09-23 19:13 | NUR ---
Bedside report given to THERESA Rey.
--- NOTE | 2019-09-23 19:15 | NUR ---
RECEIVED REPORT FROM THERESA CHARLTON. PT SITTING ON SIDE OF THE BED WITH AT BEDSIDE. VSS. PT STATES SHE FEELS ANXIOUS AND IS A LITTLE SHAKY. DISCUSSED POC WITH PT AND SPOUSE ABOUT CHANGING ATIVAN TO PO AND THEN PLACING PT ON BIPAP TO SLEEP. BOTH VERBALIZED UNDERSTANDING. CALL LIGHT WITHIN REACH. FC PATENT AND DRAINING TO GRAVITY.
[2019-09-23 20:00] VITALS: BP 143/91; PULSE 65; TEMP 98.2
--- NOTE | 2019-09-23 20:30 | NUR ---
PT PLACED ON BIPAP AT 55% AT THIS TIME. CALL LIGHT WITHIN REACH.
--- NOTE | 2019-09-23 22:18 | NUR ---
PT STATES SHE CANNOT SLEEP WITH THE BIPAP ON AN IS REQUESTING TO BE PLACED BACK ON AIRFLOW AT THIS TIME. PT ALSO ASSISTED WITH STANDBY ASSIST TO THE RECLINER. CALL LIGHT WITHIN REACH. VSS. FC PATENT AND DRAINING TO GRAVITY.
[2019-09-24] VITALS: BP 117/52; PULSE 61; TEMP 98.2
[2019-09-24 04:00] VITALS: BP 136/62; PULSE 67; TEMP 98.2
[2019-09-24 08:00] VITALS: BP 132/51; PULSE 68; TEMP 97.7
--- NOTE | 2019-09-24 08:00 | NUR ---
Shift assessment complete at this time. Plan of care reviewed at bedside with patient. Additional time taken to address any other needs or concerns. Vitals stable at this time. Pt denies pain or any other discomfort. Bed in low position, call light within reach, will continue to monitor.
[2019-09-24 09:56] LABS: ARTERIAL BLOOD GAS BASE EXCESS 6.5 (-2-2); ARTERIAL BLOOD GAS HCO3 30.7 meq/L (22-26); ARTERIAL BLOOD GAS PCO2 42.2 mmHg (35-45); ARTERIAL BLOOD GAS PO2 62.4 mmHg (80-100); ARTERIAL BLOOD GAS pH 7.48 (7.35-7.45)
[2019-09-24] MEDS ORDERED: AMOXICILLIN 8751 TAB PO (10:45)
[2019-09-24] MEDS ORDERED: MUCUS RELIEF400 M1 PO (10:47)
[2019-09-24] MEDS ORDERED: MEDROL 4MG DOSPA4 MG PO (10:48)
--- NOTE | 2019-09-24 15:40 | NUR ---
Dining Room Helper attended clinical rounds with the team. Patient to discharge today with recommended Home Health for PT/OT. BIANKA met with patient and provided Medicare.gov list of Home Health agencies that serve [place], [place]. Patient selected [facility] and BIANKA faxed referral. BIANKA spoke with Jennifer who advised they are processing referral but would likely accept and see patient tomorrow. BIANKA was contacted by Shabbir Haq who requested documentation to order trilogy for patient. BIANKA faxed over requested documentation and signed order. SW to fax discharge summary when completed. BIANKA faxed discharge orders to [facility]. No additional concerns at this time.
== END 2019-09-24 12:30 | disposition home or self-care (01) | DRG 189 ==
LOC: COL.ER 17:42 → ICU 19:40
PROVIDERS: Emergency Medicine; Hospitalist; Internal Medicine Critical Care Medicine; Nurse Practitioner Family; Physician Assistant; ADMIT Student in an Organized Health Care Education/Training Program
DX: J96.21 Acute and chronic respiratory failure with hypoxia (principal); I25.10 Atherosclerotic heart disease of native coronary artery without angina pectoris; G47.33 Obstructive sleep apnea (adult) (pediatric); E66.01 Morbid (severe) obesity due to excess calories; E11.9 Type 2 diabetes mellitus without complications; I50.9 Heart failure, unspecified; B97.4 Respiratory syncytial virus as the cause of diseases classified elsewhere; Z66 Do not resuscitate; J20.9 Acute bronchitis, unspecified; I11.0 Hypertensive heart disease with heart failure; Z95.818 Presence of other cardiac implants and grafts; I25.2 Old myocardial infarction; Z90.49 Acquired absence of other specified parts of digestive tract; Z90.89 Acquired absence of other organs; Z90.710 Acquired absence of both cervix and uterus; Z79.84 Long term (current) use of oral hypoglycemic drugs; Z79.82 Long term (current) use of aspirin
CPT/HCPCS: 99223-AI; 99233-AI; 99239; A4216; J0692; J1170; J1650; J1815; J1940; J2060; J2405; J2920; J2930; J3370; J7030; J7040; J7050

== ENCOUNTER → 2021-05-25 | Outpatient (CLI) | payer MEDICARE ==
[~2021-05-25] MED LIST changes: +AMOXICILLIN 8751 TAB PO; +LIPITOR20 MG PO; +MEDROL 4MG DOSPA4 MG PO; +MUCUS RELIEF400 M1 PO; +PEPCID40 MG PO; +SYNTHROID 0.10.15 MG PO; +VITAMIN B6250 MG PO
== END ==
LOC: COL.RAD 06:39
DX: R91.8 Other nonspecific abnormal finding of lung field (principal); F17.210 Nicotine dependence, cigarettes, uncomplicated

== ENCOUNTER → 2022-05-27 | Outpatient (CLI) | payer MEDICARE | LOC: COL.RAD 12:35 | DX: Z12.2 Encounter for screening for malignant neoplasm of respiratory organs (principal); R91.8 Other nonspecific abnormal finding of lung field; F17.210 Nicotine dependence, cigarettes, uncomplicated ==

== ENCOUNTER → 2023-02-28 | Outpatient (CLI) | payer MEDICARE | LOC: COL.RAD 10:31 | DX: I65.21 Occlusion and stenosis of right carotid artery (principal) ==

== ENCOUNTER → 2023-03-14 | Outpatient (CLI) | payer MEDICARE ==
[~2023-03-14] MED LIST changes: +Iohexol 300 - 100 ML VIAL IV ONE; +NS 100 ML IV SCH
== END ==
LOC: COL.RAD 13:27
DX: I65.23 Occlusion and stenosis of bilateral carotid arteries (principal); J43.9 Emphysema, unspecified
CPT/HCPCS: Q9967

== ENCOUNTER → 2024-05-19 | Outpatient (CLI) | payer MEDICARE | LOC: COL.RAD 06:57 | DX: I65.23 Occlusion and stenosis of bilateral carotid arteries (principal); J43.8 Other emphysema | CPT/HCPCS: Q9967 ==